=== PATIENT | male | born 1990 | race Caucasian/White ===

== ENCOUNTER 2025-09-15 06:58 | Emergency (ER) | payer OTHER, SELFPAY ==
[2025-09-15 07:10] VITALS: BP 102/65
--- NOTE | 2025-09-15 09:02 | ED.SKININJ ---
HPI-Injury
General
Chief Complaint: Eye Problems
Source: patient
Exam Limitations: none
Time Seen by Provider: 09/15/25 08:22
Nursing documentation reviewed up to this point in time: agreed with
History of Present Illness-Injury
Initial Injury comments:
35-year-old male states he was working on his car yesterday then later in the evening felt something fall into his right eye most likely from his hair. He slept well then woke this morning with a swollen watery right eye and foreign body sensation.
He denies change in vision.
Past History
Past History
ED Past Medical History: None
ED Past Surgical History: None
Social History
Tobacco: Non-smoker
Alcohol: Occasional
Personal: Single
Living: with roommate
Employment: Employed
Review of Systems
Review of Systems
Allergies reviewed?: Yes
All Other Systems: ROS reviewed and negative except as documented in HPI and ROS
Phy Exam
Physical Exam
Physical Exam:
PHYSICAL EXAMINATION:
General: no apparent distress, not acutely ill
Neuro: alert and oriented.
Psychiatric: well kept. interactive and cooperative
Musculoskeletal: Moves with ease
Skin: Warm, pink.
Eye Exam
Eye Exam: PERRL, EOMI, cornea clear (on simple exam). Fluorescein stain reveals a tiny black FB at 6 o'clock on cornea, topical anesthetic relieved symptoms. Unable to completely remove with eye daniela. ), conjunctiva normal, globe normal, visual
acuity normal and visual sims normal
Course
Orders/Labs/Results
Orders:
Orders
09/15/25 09:04
Tetanus/Diphth/Acelpertussis [Adacel] 0.5 ml IM .ONCE ONE
Vital Signs
Initial and Last Documented VS:
Initial Vital Signs
Temp Pulse Resp BP Pulse Ox
97.7 F 60 16 102/65 98
09/15/25 07:10 09/15/25 07:10 09/15/25 07:10 09/15/25 07:10 09/15/25 07:10
Last Documented Vital Signs
Temp Pulse Resp BP Pulse Ox
97.7 F 62 16 110/71 99
09/15/25 07:10 09/15/25 09:32 09/15/25 09:32 09/15/25 09:32 09/15/25 09:32
MDM/Problems Addressed
Differential Diagnosis Includes:
FB, corneal abrasion
MDM/Problems Addressed:
35-year-old male states he was working on his car yesterday then later in the evening felt something fall into his right eye most likely from his hair. He slept well then woke this morning with a swollen watery right eye and foreign body sensation.
He denies change in vision.
Unable to completely remove foreign body. Consulted website project manager Dr. Elam who will see pt now.
*Pulse Oximetry
SaO2: 98
Oxygen Mode of Delivery: Room air
Patient hypoxic: not evaluated
*Critical Care Note
Total Time (30-74mins, 75-104mins- exclusive of procedures): Not Applicable
ED Attending Note
-
Portions of this chart may have been created with voice recognition software.� Occasional wrong word or��sound alike� substitutions may have occurred due to the inherent limitations of voice recognition software.
Discharge Plan
Departure
Patient Disposition: Home (Routine Discharge)
Date of Disposition: 09/15/25
Time of Disposition: 09:22
Patient with high blood pressure during this ER visit?: No
Condition: Good
Discharge Problem:
Foreign body of right eye, Corneal abrasion, right
Instructions: Corneal Abrasion (DC), Foreign Body in Eye (DC)
Referrals:
Rufus Elam MD [Active, Ophthalmology] - Keep scheduled appt
UNKNOWN - PT NOT,INTERVIEWE [Family Provider]
Activity Restrictions/Additional Instructions:
As we discussed, go straight to Dr. Elam's office, they are expecting you.
Interventions
Interventions:
*Risk Screen - Suicide Last Done: 09/15/25 07:10
*General Assessment Last Done: 09/15/25 07:10
*Neglect/Abuse Screening Last Done: 09/15/25 07:10
*ED- Fall Risk Assessment Last Done: 09/15/25 08:49
*ED COVID-19 Vaccine History Last Done: 09/15/25 08:49
*ED Influenza Vaccine History Last Done: 09/15/25 08:49
*Nursing Disposition Last Done: 09/15/25 09:32
Discharge Date and Time
Discharge Date/Time: 09/15/25 09:32
Print Language: SAMOAN
[2025-09-15] MEDS: ADACEL 0.5 ML IM (09:06)
[2025-09-15 09:32] VITALS: BP 110/71
== END 2025-09-15 09:32 | disposition home or self-care (01) ==
LOC: EMR 06:58
PROVIDERS: EMERGENCY PHYSICIAN Emergency Medicine
DX: T15.01XA Foreign body in cornea, right eye, initial encounter (principal); W44.9XXA Unspecified foreign body entering into or through a natural orifice, initial encounter; Z23 Encounter for immunization
CPT/HCPCS: 99282; 90471; 90715